=== PATIENT | female | born 1965 | race Caucasian/White ===

== ENCOUNTER 2024-05-02 13:58 | Emergency (ER) | payer SELFPAY ==
--- NOTE | 2024-05-02 14:06 | XR_ITS ---
Examination: PA lateral chest 2 views TECHNIQUE: Upright PA lateral chest 2 views Exam date and time: May 02, 2024 1440 hours INDICATIONS: Weakness fatigue today. FINDINGS: Mild prominence left ventricle Ectatic thoracic aorta. No pneumonia or pulmonary edema Moderate hyperexpansion with increased AP dimension chest Prominent osteopenia with kyphosis dorsal spine IMPRESSION: COPD No pneumonia or pulmonary edema
--- NOTE | 2024-05-02 14:14 | PD.EDRME ---
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
[2024-05-02 14:22] VITALS: BP 180/92; PULSE 95; RESP 19; TEMP 37.1; O2SAT 99; BMI 29.9
[2024-05-02 14:38] LABS: Basophils % (Auto) 1 % (0-2.5); Eosinophils # (Auto) 0.2 Thou/mm3 (0.0-0.5); Eosinophils % (Auto) 2 % (0-10); Hematocrit 27.2 % (36.0-46.0); Immature Granulocytes % (Auto) 0 % (0-0); Immature Granulocytes Auto 0.01 Thou/mm3 (0.00-0.00); Lymphocytes # (Auto) 2.5 Thou/mm3 (1.0-4.8); Lymphocytes % (Auto) 33 % (10-50); Mean Corpuscular HGB Conc 30.9 g/dl (31.0-37.0); Mean Corpuscular Hemoglobin 24.8 pg (25.0-35.0); Mean Corpuscular Volume 80 fL (80-100); Monocytes # (Auto) 0.6 Thou/mm3 (0.0-0.8); Monocytes % (Auto) 8 % (0-12); Neutrophils # (Auto) 4.3 Thou/mm3 (1.8-7.7); Neutrophils % (Auto) 57 % (37-80); Nucleated Red Blood Cell % 0 /100 WBC (0); Platelet Count 380 Thou/mm3 (140-440); RDW Standard Deviation 41.3 fL (36.4-46.3); Red Blood Count 3.39 Miln/mm3 (4.00-5.20); White Blood Count 7.7 Thou/mm3 (3.6-11.0)
[2024-05-02 14:53] LABS: INR 0.9 (0.9-1.3); Partial Thromboplastin Time 23.2 Seconds (22.0-36.0); Prothrombin Time 10.4 Seconds (9.0-12.2)
[2024-05-02 14:59] LABS: Collection Type, Urine Clean Catch
[2024-05-02 15:01] LABS: Alanine Aminotransferase 22 U/L (10-49); Albumin, Serum 4.4 gm/dL (3.5-5.0); Albumin/Globulin Ratio 1.8 (1.2-2.2); Alkaline Phosphatase 82 U/L (46-116); Anion Gap 8 (7-16); Aspartate Amino Transferase 13 U/L (0-34); BUN/Creatinine Ratio 14 Ratio (12-20); Bilirubin,Total 0.5 mg/dL (0.3-1.2); Blood Urea Nitrogen 13 mg/dL (9-23); Calcium 9.6 mg/dL (8.3-10.6); Calcium (Corrected) 9.6 mg/dL (8.5-10.1); Carbon Dioxide 23.8 mMol/L (20.0-31.0); Chloride 106 mMol/L (98-107); Creatinine (Component) 0.9 mg/dL (0.6-1.3); Estimated Creatinine Clearance 72.8 mL/min (>60); Globulin 2.5 gm/dL (2.3-3.5); Glucose 182 mg/dL (74-106); Magnesium 1.8 mg/dL (1.6-2.6); Osmolality,Calculated 280 (275-295); Potassium 3.8 mMol/L (3.4-5.1); Sodium 138 mMol/L (136-145); Total Protein 6.9 gm/dL (5.7-8.2); Troponin I < 0.002 ng/mL (0.0-0.045); eGFR > 60 See Note
[2024-05-02 15:10] LABS: Hemoglobin 8.4 g/dL (12.0-16.0)
[2024-05-02 15:31] LABS: Bilirubin,Urine Negative (Negative); Blood,Urine Negative (Negative); Clarity,Urine Clear (Clear/Hazy); Color,Urine Colorless (Lt Yel-Yel); Glucose, Urine Negative (Negative); Ketones,Urine Negative (Negative); Leukocyte Esterase,Urine Negative (Negative); Nitrite,Urine Negative (Negative); PH,Urine 6.5 (5.0-7.0); Protein,Urine Negative (Neg - Trace); RBC,Urine 1 /hpf (0-3); Specific Gravity,Urine 1.008 (1.001-1.035); Squamous Epithelial Cell,Urine < 1 /hpf (0-5); Urobilinogen,Urine Negative mg/dL (0.0-1.0); WBC,Urine < 1 /hpf (0-5)
[2024-05-02 15:58] LABS: B-Type Natriuretic Peptide 46 pg/mL (0-100)
[2024-05-02 18:15] VITALS: BP 159/72; PULSE 99; RESP 16; TEMP 36.8; O2SAT 97
[2024-05-02 19:00] LABS: Ferritin 7 ng/mL (7.3-270.7); Iron 8 mcg/dL (50-170); Percent Iron Saturation 1 % (20-55); Total Iron Binding Capacity 448 mcg/dL (250-425); Unsaturated Iron Binding 440 (225-295)
--- NOTE | 2024-05-02 19:20 | EDNOTE_ITS ---
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 MORIN MAIN ED EVALUATION: 58 year old female presents to the Emergency Department with complaint of dark stools and anemia history; she went to the clinic and was sent here for further evaluation. She states she had dark stools and not really sure if they were black but states they were dark. Associated symptoms include dizziness, headache, nausea, and dypnea on exertion. Patient denies any no vomiting, chest pain, or any other symptoms at this time. Patient notes she is taking OTC vitamins. PMHx: Anemia, diabetes Social Hx: No tobacco, alcohol, or substance use. Related Data Allergies Allergy/AdvReac Type Severity Reaction Status Date / Time No Known Allergies Allergy Verified 05/02/24 14:00 Review of Systems Review of Systems Systems Reviewed: All systems reviewed, normal except as documented Narrative Review of Systems: GEN: No fever, no chills, no weight loss EYES: No discharge, no visual changes, no pain HEENT: No ear pain, no congestion, no sore throat PULM: No shortness of breath, no cough, no congestion CV: No chest pain, + dyspnea on exertion, no palpitations GI: + nausea, no vomiting, no diarrhea, no pain, no constipation; + dark stools/ rectal bleed? : No frequency, no urgency and no dysuria MUSC/SKEL: No joint pain, no back pain SKIN: No rash PSYCH: No hallucinations, no depression HEME/LYMPH: No easy bleeding or bruising tendencies NEURO: No weakness, + headache, + dizziness Past Medical History Social History SMOKING STATUS: Never smoker SUBSTANCE USE: does not use ALCOHOL: Never ED Exam General Limitations: Present no limitations General appearance: Present alert, in no apparent distress (sitting comfortably) and other (not tachypneic; pale) Head Head exam: Present atraumatic, normocephalic and normal inspection Eye Eye exam: Present normal appearance, PERRL and EOMI ENT ENT exam: Present normal exam, normal oropharynx and mucous membranes moist Neck Neck exam: Present normal inspection, full ROM and trachea midline Chest Chest inspection: Present normal inspection and symmetric chest wall rise Respiratory Respiratory exam: Present normal lung sounds bilaterally; Absent accessory muscle use Cardiovascular Cardiovascular exam: Present regular rate, normal rhythm and normal heart sounds Abdominal Exam Abdominal exam: Present soft and normal bowel sounds; Absent distention Rectal Exam Rectal exam: Present heme (-) stool; Absent hemorrhoids or mass Extremities Exam Extremities exam: Present normal inspection and full ROM Back Exam Back exam: Present normal inspection and full ROM Neurological Exam Neurological exam: Present alert, oriented X3 and CN II-XII intact Psychiatric Psychiatric exam: Present normal affect and normal mood Skin Skin exam: Present warm, dry, intact and normal color Course Quality Measures none Orders Category Date Time Status EKG (ED ONLY) *Do not use* NOW Care 05/02/24 14:06 Completed Vital Signs, Non-Routine Timed Care 05/02/24 19:23 Ordered EKG (ED Only) Stat Exams 05/02/24 14:06 Ordered XR chest 2V Stat Exams 05/02/24 14:06 Completed B-Type Natriuretic Peptide Stat Lab 05/02/24 14:20 Completed CBC Stat Lab 05/02/24 14:20 Completed Comprehensive Metabolic Panel Stat Lab 05/02/24 14:20 Completed Ferritin Stat Lab 05/02/24 17:27 Completed Iron Panel Stat Lab 05/02/24 17:27 Completed Magnesium Stat Lab 05/02/24 14:20 Completed Partial Thromboplastin Time Stat Lab 05/02/24 14:20 Completed Prothrombin Time with INR Stat Lab 05/02/24 14:20 Completed Red Blood Cells Stat Lab 05/02/24 14:20 Results Troponin I Stat Lab 05/02/24 14:20 Completed Type and Screen Stat Lab 05/02/24 14:20 Results Urinalysis Stat Lab 05/02/24 14:30 Completed Vital Signs Vital signs: Vital Signs Temperature 98.8 F 05/02/24 14:22 Pulse Rate 95 05/02/24 14:22 Respiratory Rate 19 05/02/24 14:22 Blood Pressure 180/92 H 05/02/24 14:22 Pulse Oximetry (%) 99 05/02/24 14:22 Oxygen Delivery Method Room Air 05/02/24 14:22 GI Bleed MDM Narrative MDM Narrative:: I, Gretelnabeel العلي, am scribing for and in the presence of Dr. Morin. Patient data External records reviewed:: None (no previous visits) Clinical information provided by:: patient Social determinants that could affect healthcare access:: none Patient has the following chronic illnesses:: Anemia, diabetes How is presenting disease/condition affected by chronic disease/condition?: caused by Evaluation data The following diagnostics were reviewed and interpreted by me:: lab results, radiology exam(s) and EKG tracing(s) (done at 1417, NSR, rate of 88, normal intervals, normal axis, no acute ST or T-wave changes, no STEMI, according to my interpretation.) Lab and/or radiology exams considered but not ordered:: none Interpretation Summary: Procedure(s): XR chest 2V Accession Number(s): [id number] cc: Margi (ANEL),Buster TAM; Mick Bone MD; Mele Parker MD~ Examination: PA lateral chest 2 views TECHNIQUE: Upright PA lateral chest 2 views Exam date and time: May 02, 2024 1440 hours INDICATIONS: Weakness fatigue today. FINDINGS: Mild prominence left ventricle Ectatic thoracic aorta. No pneumonia or pulmonary edema Moderate hyperexpansion with increased AP dimension chest Prominent osteopenia with kyphosis dorsal spine IMPRESSION: COPD No pneumonia or pulmonary edema Dictated By: Mele Parker MD Medications / Prescriptions Medications or Prescriptions considered but not ordered:: none Medication administrations:: see above if any Consultations Consultation(s) initiated? (list below): No Diagnosis GI bleed differential diagnosis: Lower gastrointestinal hemorrhage, melena and other (symptomatic anemia, dehydration) Most likely diagnosis given after review of the tests above:: see below Admission Indicated Admission indicated?: not indicated Admission Request Was there a request for admission?: No Disposition Plan Disposition Plan: Discharge Discharge Attestation Discharge Attestation: The patient and all family members were given an opportunity to ask questions and understood the discharge instructions. Discharge instructions specifically effects, indications for sooner follow up or return to the emergency department, and the expected course of current diagnosis. Patient condition: Stable Discharge Plan Plan Patient Disposition: HOME (Self Care) Patient condition on transfer: Stable Prescriptions/Referrals Referrals: Mick Bone MD [Primary Care Provider] - In 1 week Problem List Clinical Impression: Iron (Fe) deficiency anemia Patient/Caregiver Discharge Instructions Education Materials: Anemia, ED Anemia, Iron-Deficiency (Adult) Additional Instructions: Please follow-up with your doctor to see if they want to start you on any a dditional iron tablets. Continue your vitamins. Return to the emergency department for any worsening symptoms, you pass out, you have chest pain, shortness of breath, or any other concerns. Print Language: [place] Stand Alone Forms: Beth Award Info., Patient Portal Info Letter
[2024-05-02 22:58] VITALS: BP 165/94; PULSE 77; RESP 18; TEMP 37.1; O2SAT 100
[2024-05-03 00:47] VITALS: BP 152/80; PULSE 72; RESP 16; TEMP 36.8; O2SAT 98
--- NOTE | 2024-05-03 00:47 | PC.NURSE ---
PER DR. BRADLEY PATIENT DOSE NOT NEED BLOOD TRANSFUSION AT TIME.
== END 2024-05-03 00:49 | disposition home or self-care (01) ==
PROVIDERS: Nurse Practitioner Primary Care; Emergency Provider Emergency Medicine; PCP Family Medicine
DX: D50.9 Iron deficiency anemia, unspecified (principal); J44.9 Chronic obstructive pulmonary disease, unspecified
CPT/HCPCS: 36415; 71046; 80053; 81001; 82728; 83540; 83550; 83735; 83880; 84484; 85025; 85610; 85730; 86850; 86900; 86901; 86923; 93005; 99283